=== PATIENT | male | born 1980 | race Caucasian/White ===

== ENCOUNTER 2019-03-06 12:30 | Emergency (ER) | payer OTHER, SELFPAY ==
[2019-03-06 12:32] VITALS: BP 142/98; PULSE 84; RESP 19; TEMP 36.6; O2SAT 100; BMI 32.2
[2019-03-06 12:37] VITALS: PULSE 73; RESP 18; O2SAT 98; O2SAT 99
[2019-03-06] MEDS: Morphine 4 MG/ML Syringe IV (12:42)
--- NOTE | 2019-03-06 12:43 | CT_ITS ---
STUDY: CT ABDOMEN AND PELVIS WITH CONTRAST REASON FOR EXAM: Male, 38 years old. PT HAD A STACK OF PALLETS FALL ON HIS RT SIDE RADIATION DOSAGE (If Supplied By Facility): CTDIvol = ( 16.36 ) mGy, DLP = ( 843.09 ) mGycm TECHNIQUE: Transaxial images were obtained from the dome of the diaphragm to the symphysis pubis without oral contrast. IV 100mL Isovue-300 was administered. Sagittal and coronal images were reconstructed. Individualized dose optimization techniques were used for this CT. COMPARISON: None. FINDINGS: The visualized lung bases are unremarkable. The visualized portions of the heart are within normal limits. Normal liver. Normal gallbladder and extrahepatic biliary system. There are multiple benign calcified granulomata of the spleen. Normal pancreas. Normal bilateral adrenal glands. Normal right kidney. Normal left kidney. There is a small hiatal hernia. Normal small intestine. Normal colon. The appendix is visualized and appears normal. Normal abdominal aorta. Normal inferior vena cava. Normal retroperitoneum. Normal urinary bladder. There are prostatic calcifications. Small benign-appearing bilateral inguinal lymph nodes. There is a small umbilical hernia containing fat. Normal osseous structures. CT/Abdomen/Pelvis WITH Contrast IMPRESSION: No acute abnormality is seen. Electronically Signed: Tobias Gonzales, at 13:26 EST , Service support ,
--- NOTE | 2019-03-06 12:43 | CT_ITS ---
STUDY: CT CHEST WITH CONTRAST REASON FOR EXAM: Male, 38 years old. PT HAD A STACK OF PALLETS FALL ON HIS RT SIDE RADIATION DOSAGE (If Supplied By Facility): CTDIvol = ( 15.20 ) mGy, DLP = ( 511.70 ) mGycm TECHNIQUE: Transaxial imaging was performed following intravenous administration of IV 100mL Isovue-300. Multiplanar coronal and sagittal images were reformatted. Individualized dose optimization techniques were used for this CT. COMPARISON: None. FINDINGS: The lungs are normal. There is no demonstrated pleural abnormality. Normal heart and pericardium. Calcified subcarinal lymph nodes. Normal hilar regions. Normal enhanced pulmonary arteries. Normal aorta arch and descending thoracic aorta. Normal osseous structures. Small hiatal hernia. CT/Chest WITH Contrast IMPRESSION: No acute abnormality is seen. Electronically Signed: Tobias Gonzales, at 13:25 EST , Service support ,
--- NOTE | 2019-03-06 12:44 | EKG12_ITS ---
Test Reason : TRAUMA Blood Pressure : / mmHG Vent. Rate : 074 BPM Atrial Rate : 074 BPM P-R Int : 160 ms QRS Dur : 108 ms QT Int : 380 ms P-R-T Axes : 045 049 030 degrees QTc Int : 421 ms Normal sinus rhythm Normal ECG Confirmed by RIGOBERTO DOE ([id number]), staff editor JUDE CRANE ([id number]) on 03/08/2019 10:24:09 AM Referred By: COLIN Confirmed By:RIGOBERTO DOE
--- NOTE | 2019-03-06 12:46 | CT_ITS ---
STUDY: CT LUMBAR SPINE WITHOUT CONTRAST REASON FOR EXAM: Male, 38 years old. PT HAD A STACK OF PALLETS FALL ON HIS RT SIDE RADIATION DOSAGE (If Supplied By Facility): CTDIvol = ( 18.78 ) mGy, DLP = ( 503.47 ) mGycm TECHNIQUE: The patient was scanned in a multi detector CT scanner. High resolution transaxial imaging was performed. Images were obtained from T12 to S1 level. Sagittal and coronal images were reconstructed. Individualized dose optimization techniques were used for this CT. COMPARISON: None FINDINGS: Normal lumbar lordosis. There is no substantial scoliosis. Normal vertebrae of the lumbar spine. L1-2: Normal endplates. Normal disc height and morphology. Normal bilateral facet joints. Normal central canal and bilateral lateral recesses. Normal bilateral intervertebral neural foramina. L2-3: Normal endplates. Normal disc height and morphology. Normal bilateral facet joints. Normal central canal and bilateral lateral recesses. Normal bilateral intervertebral neural foramina. L3-4: Normal endplates. Normal disc height and morphology. Normal bilateral facet joints. Normal central canal and bilateral lateral recesses. Normal bilateral intervertebral neural foramina. L4-5: Normal endplates. Normal disc height and morphology. Normal bilateral facet joints. Normal central canal and bilateral lateral recesses. Normal bilateral intervertebral neural foramina. L5-S1: Normal endplates. Normal disc height and morphology. Normal bilateral facet joints. Normal central canal and bilateral lateral recesses. Normal bilateral intervertebral neural foramina. Normal visualized paraspinous soft tissue structures. CT/Spine Lumbar without Contrast IMPRESSION: Normal unenhanced CT examination of the lumbar spine. Electronically Signed: Tobias Gonzales, at 13:28 EST , Service support ,
--- NOTE | 2019-03-06 12:46 | CT_ITS ---
STUDY: CT THORACIC SPINE WITHOUT CONTRAST REASON FOR EXAM: Male, 38 years old. PT HAD A STACK OF PALLETS FALL ON HIS RT SIDE RADIATION DOSAGE (If Supplied By Facility): CTDIvol = ( 20.26 ) mGy, DLP = ( 760.89 ) mGycm TECHNIQUE: The patient was scanned in a multi detector CT scanner. High resolution imaging was performed. Images were obtained from T1 to T12 level. Sagittal and coronal images were reconstructed. Individualized dose optimization techniques were used for this CT. COMPARISON: None. FINDINGS: Normal visualized cervical spine. Normal kyphosis of the thoracic spine. There is no substantial scoliosis. Normal thoracic vertebrae and endplates. Normal disc spaces heights. The soft tissue structures are unremarkable. CT/Spine Thoracic without Contras IMPRESSION: Normal unenhanced CT examination of the thoracic spine. Electronically Signed: Tobias Gonzales, at 13:29 EST , Service support ,
--- NOTE | 2019-03-06 12:47 | ED.VIS.GEN ---
History of Present Illness Chief Complaint: Trauma Informant: Patient Onset: Today Current Severity: Severe Narrative: Patient had a wooden pallet fall on his chest and abdomen, the weight of the palate was up to 3000 pounds, however only part of it fell on his chest and not the entire thing. He dragged himself out from underneath it scratching his lower legs. After that he stood up. He is complaining of chest pain and abdominal pain. He did not suffer any neck injury, no headache or head injury. He has no upper extremity injury. He has no thoracic or lumbar back pain. He has abrasions over his lower extremities but was able to stand up and has no other pain. Past Medical History - Allergies and Home Meds Allergies/Adverse Reactions: Allergies No Known Allergies Allergy (Verified 03/06/19 12:32) Primary Care Physician: Corey Fox DO [Primary Care Provider] - 3-5 Days [facility]YSIC[facility]] - Past Medical History: None Lives: Spouse/ Significant Other Smoking Status: Former smoker Review of Systems All systems negative except as indicated General: Reports: - - No loss of consciousness, no head injury Eyes: Denies: Visual changes - bilaterally ENT: Reports: - - No facial trauma Cardiovascular: Reports: Chest pain. Denies: Palpitations Respiratory: Denies: Dyspnea, Cough Gastrointestinal: Reports: Abdominal pain. Denies: Nausea, Vomiting Genitourinary: Denies: Hematuria Musculoskeletal: Reports: - - Extremity abrasions. Denies: Neck pain Skin: Reports: Abrasions Neurological: Denies: Weakness Endocrine: Denies: Polyuria Hematologic: Denies: Easy bruising Allergy: Denies: Swelling of the tongue Physical Exam Vital Signs/Narrative: Vital Signs Temp Pulse Resp BP Pulse Ox 03/06/19 12:37 73 18 98 03/06/19 12:32 97.9 F 84 19 H 142/98 H 100 General: - - Appears in some distress Head: Normocephalic, Atraumatic Eyes: Perrl. Negative for: Pale conjunctiva ENT: - - No Facial trauma Cardiovascular: Regular rate, Regular rhythm, - - He has left-sided chest wall pain Respiratory: - - Is bilateral breath sounds, he has painful inspirations, he has a contusion over the left side of his chest no step-offs or flail chest Abdomen: Soft, Tender, - - He has diffuse abdominal tenderness, mostly on the left side and suprapubic region.. Negative for: No masses Rectal: Nontender : - - Normal external genitalia Back: - - Regions over the lower back however he has no thoracic or lumbar tenderness to palpation Extremities: - - Will pelvis. He has multiple abrasions over the lower extremities but no bony tenderness no knee pain or ankle pain. Skin: - - Abrasions as above, contusions as above Neurological: Alert, Oriented x3, Normal Strength, Normal Sensation Diagnostic/Tx/Re-eval - Medical Decision Making Patient has a normal emergency department work-up including CT of the chest and abdomen. He was observed he continues to do well I will discharge him in stable condition ED Disposition - Plan for ED Patient: Disposition: Home or Assisted Living Diagnosis: Chest wall contusion, Abdominal wall contusion Instructions: Chest Wall Contusion Prescriptions: Oxycodone HCl/Acetaminophen [Percocet 5/325] 1 tab PO Q6H PRN PRN 3 Days #12 tab PRN Reason: Pain Prescription Printed Referrals: Corey Fox DO [Primary Care Provider] - 3-5 Days [facility]IC[facility]] -
[2019-03-06 12:55] LABS: Absolute Lymphocyte Count 2.68 X10^3/uL (0.83-4.51); Absolute Neutrophil Count 3.3 X10^3/uL (2.0-7.7); Basophil# 0.02 X10^3/uL; Basophil% 0.3 % (0-1); Hematocrit 46.3 % (40-54); Hemoglobin 16.4 g/dL (13.0-16.5); Lymphocyte # 2.68 X10^3/ul (4.0); Lymphocyte % 40.2 % (19-41); Mean Corp Hgb Conc 35.4 g/dL (32-36); Mean Corpuscular Hgb 29.4 pg (27.0-32.0); Mean Platelet Vol. 8.5 fl (6.2-12.0); Monocyte# 0.46 X10^3/uL; Monocyte% 6.9 % (0-10); NRBC Flagged by Analyzer 0 % (0-5); Neutrophil # 3.28 X10^3/uL (2.7-7.7); Neutrophil % 49.2 % (47-70); Platelet Count 179 K/mm3 (150-450); RBC Distribution Width CV 11.6 % (11.6-14.6); RBC Distribution Width SD 34.9 fl (35.1-43.9); Red Blood Count 5.58 M/mm3 (4.6-6.2); White Blood Count 6.7 K/mm3 (4.4-11.0)
[2019-03-06] MEDS: 0.9% Normal Saline 1,000 ML 1000 ML IV (13:01)
[2019-03-06 13:13] LABS: AST(SGOT) 29 U/L (15-37); Alanine Aminotransfer ALT/SGPT 40 U/L (16-61); Albumin, Serum 3.8 g/dL (3.2-5.0); Alkaline Phosphatase 77 U/L (45-117); Anion Gap 6 (5-15); BUN 18 mg/dL (7-18); BUN/Creat Ratio 21.9 RATIO (10-20); Calcium,Total 9.1 mg/dL (8.5-10.1); Chloride 105 mmol/L (98-107); Creatinine, Serum 0.82 mg/dL (0.70-1.30); EST Glomerular Filtration Rate 112 mL/min (>60); Est Glom Filt Rate - Afr Amer 136 mL/min (>60); Globulin 3.7 g/dL (2.2-4.2); Glucose 105 mg/dL (74-106); Lipase 171 U/L (73-393); Potassium 3.7 mmol/L (3.5-5.1); Protein, Total 7.5 g/dL (6.4-8.2); Sodium Level 136 mmol/L (136-145)
[2019-03-06 13:36] VITALS: BP 133/66; PULSE 74; RESP 17; O2SAT 99
[2019-03-06 13:42] LABS: Bacteria 0 SEEN /hpf (None Seen); Mucous, Urine 0 SEEN /hpf (<or=2+); Squamous Epithelial Cells - UA 0 SEEN /hpf (0-5); White Blood Cells 0 SEEN /hpf (0-5)
[2019-03-06 13:47] LABS: Color, Urine Yellow (Yellow); Glucose, Dipstick Normal (Normal); Ketone-Dipstick Negative (Negative); Leukocyte Esterase-Dipstick Negative /ul (Negative); Nitrite-Dipstick Negative (Negative); Occult Blood-Urine 10 /ul (Negative); Protein-Dipstick Negative (Negative); Urine Bilirubin Dipstick Negative (Negative); Urine Clarity Sl. Cloudy (Clear); Urine Urobilinogen Normal (Normal)
[2019-03-06 13:57] LABS: Red Blood Cells-Urine 0-5 SEEN /hpf (0-5)
[2019-03-06 14:08] VITALS: BP 113/61; PULSE 78; RESP 17; O2SAT 98
[2019-03-06 15:00] VITALS: BP 132/74; PULSE 75; RESP 17; O2SAT 97
[2019-03-06 16:07] VITALS: BP 115/68; PULSE 74; RESP 18; O2SAT 98
--- NOTE | 2019-03-06 16:09 | ED.RN ---
REVIEWED D/C INSTRUCTIONS, FOLLOW UP CARE, PRESCRIPTION, AND S/S THAT WOULD WARRANT A RETURN TO THE ED WITH PT. PT VERBALIZED AN UNDERSTANDING AND DENIES FURTHER QUESTIONS FOR THIS RN. PT SKIN P/W/D, RESP EVEN AND UNLABORED, PT A&O X 3, NO DISTRESS NOTED. PT AMBULATED OUT OF ED, GAIT STEADY.
== END 2019-03-06 16:10 | disposition home or self-care (01) ==
PROVIDERS: Emergency Provider Emergency Medicine; PCP Family Medicine
DX: S20.212A Contusion of left front wall of thorax, initial encounter (principal); S30.1XXA Contusion of abdominal wall, initial encounter; S80.812A Abrasion, left lower leg, initial encounter; S80.811A Abrasion, right lower leg, initial encounter; W22.8XXA Striking against or struck by other objects, initial encounter; Y93.9 Activity, unspecified; Y92.9 Unspecified place or not applicable; Z87.891 Personal history of nicotine dependence
CPT/HCPCS: 71260; 72128; 72131; 74177; 80053; 81001; 83690; 84484; 85025; 93005; 96361; 96374; 99285; J7030; Q9967; A4216